=== PATIENT | female | born 2000 ===

== ENCOUNTER → 2022-06-19 | Outpatient (CLI) | payer OTHER ==
[~2022-06-19] MED LIST: RXPROM12.S PR
[2022-06-19 11:07] LABS: BASOPHILS ABSOLUTE AUTO 0.02 K/mm3 (0.00-0.23); BASOPHILS PERCENT AUTO 0 % (0-2); EOSINOPHILS PERCENT AUTO 0 % (0-6); Hematocrit 35.6 % (33.0-51.0); Hemoglobin 11.7 g/dL (11.5-16.0); IMMATURE GRAN ABSOLUTE AUTO 0.05 K/mm3 (0.00-0.10); IMMATURE GRAN PERCENT AUTO 0 % (0-1); LYMPHOCYTES ABSOLUTE AUTO 1.99 K/mm3 (0.84-5.20); LYMPHOCYTES PERCENT AUTO 14 % (21-46); MONOCYTES ABSOLUTE AUTO 1.22 K/mm3 (0.16-1.47); MONOCYTES PERCENT AUTO 9 % (4-13); Mean Corpuscular HGB 28.3 pg (26.0-34.0); Mean Corpuscular HGB Conc 32.9 g/dL (31.5-36.5); Mean Corpuscular Volume 86 fL (80-100); Mean Platelet Volume 9.6 fL (9.1-12.4); NEUTROPHILS ABSOLUTE AUTO 10.88 K/mm3 (1.96-9.15); NEUTROPHILS PERCENT AUTO 77 % (41-73); Platelet Count 261 K/mm3 (150-400); RDW Standard Deviation 40.7 fL (35.1-46.3); Red Blood Cell Count 4.13 M/mm3 (3.80-5.20); White Blood Cell Count 14.16 K/mm3 (4.00-11.30)
== END | disposition home or self-care (01) ==
LOC: LAB SHORT 11:04
PROVIDERS: Physician Assistant
DX: I95.9 Hypotension, unspecified (principal)
CPT/HCPCS: 85025

== ENCOUNTER → 2022-11-09 | Outpatient (CLI) | payer OTHER ==
[2022-11-09 13:31] LABS: BASOPHILS ABSOLUTE AUTO 0.03 K/mm3 (0.00-0.23); BASOPHILS PERCENT AUTO 0 % (0-2); EOSINOPHILS ABSOLUTE AUTO 0.01 K/mm3 (0.00-0.68); EOSINOPHILS PERCENT AUTO 0 % (0-6); Hematocrit 39.8 % (33.0-51.0); Hemoglobin 13.5 g/dL (11.5-16.0); IMMATURE GRAN ABSOLUTE AUTO 0.01 K/mm3 (0.00-0.10); IMMATURE GRAN PERCENT AUTO 0 % (0-1); LYMPHOCYTES ABSOLUTE AUTO 2.15 K/mm3 (0.84-5.20); LYMPHOCYTES PERCENT AUTO 31 % (21-46); MONOCYTES ABSOLUTE AUTO 0.23 K/mm3 (0.16-1.47); MONOCYTES PERCENT AUTO 3 % (4-13); Mean Corpuscular HGB 28.5 pg (26.0-34.0); Mean Corpuscular HGB Conc 33.9 g/dL (31.5-36.5); Mean Corpuscular Volume 84 fL (80-100); Mean Platelet Volume 9.5 fL (9.1-12.4); NEUTROPHILS ABSOLUTE AUTO 4.53 K/mm3 (1.96-9.15); NEUTROPHILS PERCENT AUTO 65 % (41-73); Platelet Count 320 K/mm3 (150-400); RDW Standard Deviation 39.9 fL (35.1-46.3); Red Blood Cell Count 4.73 M/mm3 (3.80-5.20); White Blood Cell Count 6.96 K/mm3 (4.00-11.30)
[2022-11-09 13:43] LABS: Albumin, Blood 4.4 g/dL (3.4-5.0); Albumin/Globulin Ratio 1.3 (0.8-1.8); Bilirubin, Total 0.6 mg/dL (0.1-1.0); Bun/Creatinine Ratio 14.5 (12.0-20.0); Calcium, Blood 8.9 mg/dL (8.5-10.1); Creatinine, Blood 0.76 mg/dL (0.40-1.00); Globulin, Blood 3.4 g/dL (2.2-4.0); Potassium, Blood 3.6 mmol/L (3.5-5.5); Total Protein, Blood 7.8 g/dL (6.4-8.2)
== END | disposition home or self-care (01) ==
LOC: LAB 13:27 → LAB SHORT 13:27
PROVIDERS: Family Medicine
DX: R11.2 Nausea with vomiting, unspecified (principal)
CPT/HCPCS: 80053; 85025

== ENCOUNTER 2022-12-30 13:42 | Day surgery (SDC) | payer OTHER ==
[~2022-12-30] VITALS: Ht 157.5 cm; Wt 45.9 kg
[2022-12-30] MEDS ORDERED: SERT100 (14:28)
[2022-12-30] MEDS ORDERED: BUPR75 (14:28)
[2022-12-30] MEDS ORDERED: ENSKYCE 28 TAB1 EACH (14:29)
[2022-12-30] MEDS ORDERED: CETI5 (14:29)
[2022-12-30 16:48] VITALS: BP 110/77
== END 2022-12-30 16:47 | disposition home or self-care (01) ==
LOC: ORSCSDS 13:42
PROVIDERS: Internal Medicine Gastroenterology
PROC: 0DB58ZX Excision of Esophagus, Via Natural or Artificial Opening Endoscopic, Diagnostic (ICD-10-PCS; principal; 2022-12-30 15:00)
PROC: 0DB68ZX Excision of Stomach, Via Natural or Artificial Opening Endoscopic, Diagnostic (ICD-10-PCS; principal; 2022-12-30 15:00)
PROC: 0DB98ZX Excision of Duodenum, Via Natural or Artificial Opening Endoscopic, Diagnostic (ICD-10-PCS; principal; 2022-12-30 15:00)
DX: R11.2 Nausea with vomiting, unspecified (principal); R10.9 Unspecified abdominal pain; R63.4 Abnormal weight loss; K20.90 Esophagitis, unspecified without bleeding; K29.70 Gastritis, unspecified, without bleeding; F17.290 Nicotine dependence, other tobacco product, uncomplicated; Z79.899 Other long term (current) drug therapy
CPT/HCPCS: 88305; 88312; 88342; J0461; J2001; J2250; J2405; J2704; J7120; Q9968

== ENCOUNTER → 2023-11-09 | Outpatient (CLI) | payer OTHER ==
[~2023-11-09] MED LIST changes: +BUPR75; +CETI5; +ENSKYCE 28 TAB1 EACH; +SERT100
[2023-11-12 08:29] LABS: HIV 1,2 COMBO ANTIGEN/ANTIBODY Negative (Negative)
[2023-11-12 09:31] LABS: HEPATITIS B SURFACE ANTIBODY 16.29 IU/L
[2023-11-12 10:01] LABS: HEPATITIS B SURFACE ANTIGEN Negative (Negative)
[2023-11-12 14:22] LABS: HCV QNT BY NAAT (IU/ML) Not Detected; HCV QNT BY NAAT (LOG IU/ML) Not Detected; HCV QNT BY NAAT INTERP Not Detected (Not Detected)
== END | disposition home or self-care (01) ==
LOC: LAB SHORT 18:04
PROVIDERS: Emergency Medicine
DX: Z20.9 Contact with and (suspected) exposure to unspecified communicable disease (principal)
CPT/HCPCS: 84460; 87340; 87389; 87522

== ENCOUNTER → 2024-02-10 | Outpatient (CLI) | payer OTHER ==
[2024-02-10 13:48] LABS: BASOPHILS ABSOLUTE AUTO 0.01 K/mm3 (0.00-0.23); BASOPHILS PERCENT AUTO 0 % (0-2); EOSINOPHILS ABSOLUTE AUTO 0.02 K/mm3 (0.00-0.68); EOSINOPHILS PERCENT AUTO 0 % (0-6); Hematocrit 43.9 % (33.0-51.0); Hemoglobin 14.6 g/dL (11.5-16.0); IMMATURE GRAN ABSOLUTE AUTO 0.01 K/mm3 (0.00-0.10); IMMATURE GRAN PERCENT AUTO 0 % (0-1); LYMPHOCYTES ABSOLUTE AUTO 1.57 K/mm3 (0.84-5.20); LYMPHOCYTES PERCENT AUTO 25 % (21-46); MONOCYTES ABSOLUTE AUTO 0.71 K/mm3 (0.16-1.47); MONOCYTES PERCENT AUTO 11 % (4-13); Mean Corpuscular HGB 28.3 pg (26.0-34.0); Mean Corpuscular HGB Conc 33.3 g/dL (31.5-36.5); Mean Corpuscular Volume 85 fL (80-100); Mean Platelet Volume 9.8 fL (9.1-12.4); NEUTROPHILS ABSOLUTE AUTO 4.03 K/mm3 (1.96-9.15); NEUTROPHILS PERCENT AUTO 63 % (41-73); Platelet Count 278 K/mm3 (150-400); RDW Coefficient Variation 13.1 % (11.7-14.2); RDW Standard Deviation 40.6 fL (35.1-46.3); Red Blood Cell Count 5.16 M/mm3 (3.80-5.20); White Blood Cell Count 6.35 K/mm3 (4.00-11.30)
[2024-02-10 14:00] LABS: Albumin, Blood 4.3 g/dL (3.4-5.0); Albumin/Globulin Ratio 1.1 (0.8-1.8); Bilirubin, Total 0.3 mg/dL (0.1-1.0); Bun/Creatinine Ratio 7.1 (12.0-20.0); Calcium, Blood 9.2 mg/dL (8.5-10.1); Creatinine, Blood 0.7 mg/dL (0.40-1.00); Potassium, Blood 3.4 mmol/L (3.5-5.5); Total Protein, Blood 8.3 g/dL (6.4-8.2)
== END | disposition home or self-care (01) ==
LOC: LAB SHORT 13:44
PROVIDERS: Physician Assistant
DX: R11.2 Nausea with vomiting, unspecified (principal); R19.7 Diarrhea, unspecified
CPT/HCPCS: 80053; 83690; 85025

== ENCOUNTER 2024-11-06 18:38 | Observation (INO) | payer OTHER ==
[~2024-11-06] VITALS: Ht 157.5 cm; Wt 45.7 kg
[2024-11-06 19:34] LABS: BASOPHILS ABSOLUTE AUTO 0.02 K/mm3 (0.00-0.23); BASOPHILS PERCENT AUTO 0 % (0-2); EOSINOPHILS ABSOLUTE AUTO 0.01 K/mm3 (0.00-0.68); EOSINOPHILS PERCENT AUTO 0 % (0-6); Hematocrit 39.9 % (33.0-51.0); Hemoglobin 13.3 g/dL (11.5-16.0); IMMATURE GRAN ABSOLUTE AUTO 0.05 K/mm3 (0.00-0.10); IMMATURE GRAN PERCENT AUTO 0 % (0-1); LYMPHOCYTES ABSOLUTE AUTO 1.13 K/mm3 (0.84-5.20); LYMPHOCYTES PERCENT AUTO 7 % (21-46); MONOCYTES ABSOLUTE AUTO 0.97 K/mm3 (0.16-1.47); MONOCYTES PERCENT AUTO 6 % (4-13); Mean Corpuscular HGB 28.4 pg (26.0-34.0); Mean Corpuscular HGB Conc 33.3 g/dL (31.5-36.5); Mean Corpuscular Volume 85 fL (80-100); Mean Platelet Volume 10.4 fL (9.1-12.4); NEUTROPHILS ABSOLUTE AUTO 13.35 K/mm3 (1.96-9.15); NEUTROPHILS PERCENT AUTO 86 % (41-73); Platelet Count 261 K/mm3 (150-400); RDW Coefficient Variation 13.6 % (11.7-14.2); RDW Standard Deviation 42.3 fL (35.1-46.3); Red Blood Cell Count 4.68 M/mm3 (3.80-5.20); White Blood Cell Count 15.53 K/mm3 (4.00-11.30)
[2024-11-06] MEDS ORDERED: Ondansetron HCl 2 MG / ML 2ML Vial IV ONE ×2 (19:45→23:50)
[2024-11-06 20:02] LABS: Source, Urine Clean Catch
[2024-11-06 20:08] LABS: Albumin, Blood 4.1 g/dL (3.4-5.0); Albumin/Globulin Ratio 1.3 (0.8-1.8); Bilirubin, Total 1.1 mg/dL (0.1-1.0); Bun/Creatinine Ratio 13.6 (12.0-20.0); Calcium, Blood 8.8 mg/dL (8.5-10.1); Creatinine, Blood 0.52 mg/dL (0.40-1.00); Globulin, Blood 3.1 g/dL (2.2-4.0); Potassium, Blood 3.7 mmol/L (3.5-5.5); Total Protein, Blood 7.2 g/dL (6.4-8.2)
[2024-11-06] MEDS ORDERED: PARO30 PO (20:12)
[2024-11-06] MEDS ORDERED: BUSP10 PO (20:13)
[2024-11-06 20:16] LABS: Influenza A, PCR NEGATIVE (NEGATIVE); Influenza B, PCR NEGATIVE (NEGATIVE); Resp Syncytial Virus, PCR NEGATIVE (NEGATIVE); SARS-Cov-2 (COVID-19) PCR, MMC NEGATIVE (NEGATIVE)
[2024-11-06 20:24] LABS: Bilirubin, Urine Neg (Neg); Blood, Urine Neg (Neg); Color, Urine Amber (P-Yellow); Glucose Qualitative, Urine Neg (Neg); Ketones, Urine 3+ (Neg); Leukocyte Esterase, Urine 1+ (Neg); Nitrite, Urine Neg (Neg); Protein, Urine 2+ (Neg); Urobilinogen, Urine 1+ (Normal)
[2024-11-06 20:38] LABS: Appearance, Urine Hazy (Clear)
[2024-11-06 20:39] LABS: Bacteria Many /hpf; Mucus Mod (0-Heavy); Red Blood Cells, Urine 0-2 /hpf (0-2); Squamous Epithelial Cells Many /hpf (Few); Transitional Epithelial Cells Rare /hpf (0-Rare)
[2024-11-06] MEDS ORDERED: NS 1,000 ML IV SCH ×2 (20:45→21:25)
[2024-11-06] MEDS ORDERED: CefTRIAXone Sodium 1,000 MG in NS 100 ML IV ONE (23:05)
[2024-11-06] MEDS ORDERED: Lactated Ringer's 1,000 ML IV SCH (23:05)
[2024-11-06] MEDS ORDERED: Ketorolac Tromethamine 15mg Vial IV ONE (23:50)
[2024-11-07] MEDS ORDERED: Ampicillin Sod/Sulbactam Sod 3 GM in NS 100 ML IV ONE (02:20)
[2024-11-07] MEDS ORDERED: Lactated Ringer's 1,000 ML IV SCH ×2 (02:20→04:10)
[2024-11-07] MEDS ORDERED: HYDROmorphone HCl/Pf 1MG SYR IV ONE (04:45)
--- NOTE | 2024-11-07 05:32 | NUR ---
ATTEMPTED REPORT FROM ED. ED RN TO CALL SURGICAL FLOOR WHEN AVAILABLE. CHARGE AWARE. ROOM READY FOR PT.
--- NOTE | 2024-11-07 05:53 | NUR ---
REPORT RECEIVED FROM PATITO SAUCEDA IN ED AT THIS TIME. PLAN FOR ED TO TRANSFER PT TO SURGICAL FLOOR ROOM 226.
--- NOTE | 2024-11-07 06:00 | NUR ---
UPDATE PT ARRIVED TO UNIT AT 0555 TODAY R/T TO JEJUNAL INTUSSUSCEPTION DX. ABLE TO AMBULATE IND FROM WC TO BED WITHOUT DIFFICULTY. IS A/OX4 AND IND AT BASELINE. GRANDPARENTS ATTENTIVE AT BEDSIDE. DENIES PAIN, DIZZINESS, CP/PRESSURE, SOB, N/T OR N/V AT TIME OF ARRIVAL. HYPOTENSIVE IN ED, 2L IVF INFUSED. IV TO RIGHT AC SL. REPORTS NVD AND ABD PAIN X 3 DAYS PRIOR TO ADMISSION, STATES RELIEF FROM [facility] AND IV DILAUDID ADMINISTERED IN ED. ORIENTATION TO ROOM PROVIDED. PT AND FAMILY VERBALIZED UNDERSTANDING. PT SMILING AND VISITING WITH FAMILY WHILE SITTING UP IN BED. HAS CALL LIGHT IN REACH AND ABLE TO MAKE NEEDS KNOWN. PLAN FOR GENERAL SURGERY CONSULT TODAY.
[2024-11-07 06:07] VITALS: BP 108/98
[2024-11-07 06:09] VITALS: BP 116/74
--- NOTE | 2024-11-07 06:45 | NUR ---
UPDATE GRANDMOTHER ON PHONE WITH PT'S MOTHER, WHO LIVES IN [place]. PT'S MOTHER ADMIT SHE LEAVE AND SEEK CARE IN [place]. GRANDMOTHER REPORTS BEING UNHAPPY WITH CARE AND COMMUNICATION IN ED. SHE ALSO C/O PT NOT BEING EVALUATED BY SURGEON YET. DEMANDS PATIENT GET CHANGED AND LEAVE PER MOTHER REQUEST. PT THEN CHANGES CLOTHES AND WILLING TO LEAVE. INSPECTOR FILTERS AND DR MAJO DALY. AFTER DISCUSSING AMA FORM, INCLUDING RISKS AND BENEFITS WITH THIS RN AND CHARGE, PT AND FAMILY NOW PLAN TO WAIT FOR EVALUATION WITH ONCOMING SURGEON. REPORT GIVEN TO ONCOMING RN.
[2024-11-07 07:36] VITALS: BP 110/71
[2024-11-07] MEDS ORDERED: Ondansetron HCl 2 MG / ML 2ML Vial IV PRN (08:40)
[2024-11-07] MEDS ORDERED: HYDROmorphone HCl/Pf 1MG SYR IV PRN (08:40)
[2024-11-07 14:38] VITALS: BP 96/68
[2024-11-07] MEDS ORDERED: Metoclopramide HCl 10 MG Tab PO PRN (15:35)
[2024-11-07] MEDS ORDERED: ONDA4 PO (15:44)
--- NOTE | 2024-11-07 16:19 | NUR ---
DISCHARGE PT AND FAMILY EDUCATED ON AND RECEIVED PRINTED DISCHARGE INSTRUCTIONS AND VERBALIZED AN UNDERSTANDING. RX FAXED TO [facility]. IV DC'D. PT LEFT WITH ALL PERSONAL BELONGINGS AND FAMILY TO DRIVE PT HOME.
== END 2024-11-07 16:41 | disposition home or self-care (01) ==
LOC: ER 18:38 → ERHOLD 18:39 → SURS 11-07 05:59
PROVIDERS: Student in an Organized Health Care Education/Training Program; ADMIT Surgery
DX: K56.1 Intussusception (principal); F31.9 Bipolar disorder, unspecified; Z87.891 Personal history of nicotine dependence; Z79.899 Other long term (current) drug therapy
CPT/HCPCS: 0241U; 36415; 71046; 74177; 80053; 81001; 83605; 84703; 85025; 87040; 87086; 93005; 93010; 96365-59; 96367; 96375; 96376; 99285-25; G0378; J0295; J0696; J1171; J1885; J2405; J7030; J7120; Q9967

== ENCOUNTER → 2024-11-13 | Outpatient (CLI) | payer OTHER ==
[~2024-11-13] MED LIST changes: +BUSP10 PO; +ONDA4 PO; +PARO30 PO
[2024-11-13 13:17] LABS: Bacterial Vaginosis PCR Negative (NEGATIVE); Candida Group, PCR NOT DETECTED (NOT DETECT); Candida glabrata-krusei, PCR NOT DETECTED (NOT DETECT)
== END | disposition home or self-care (01) ==
LOC: LAB 10:38 → LAB SHORT 10:38
PROVIDERS: Physician Assistant
DX: Z11.3 Encounter for screening for infections with a predominantly sexual mode of transmission (principal)
CPT/HCPCS: 81515

== ENCOUNTER 2025-03-11 12:45 | Emergency (ER) | payer OTHER ==
[~2025-03-11] VITALS: Ht 157.5 cm; Wt 45.4 kg
[2025-03-11 13:27] VITALS: BP 121/85
[2025-03-11 14:24] LABS: BASOPHILS ABSOLUTE AUTO 0.04 K/mm3 (0.00-0.23); BASOPHILS PERCENT AUTO 1 % (0-2); EOSINOPHILS ABSOLUTE AUTO 0.06 K/mm3 (0.00-0.68); EOSINOPHILS PERCENT AUTO 1 % (0-6); Hematocrit 41.2 % (33.0-51.0); Hemoglobin 13.2 g/dL (11.5-16.0); IMMATURE GRAN ABSOLUTE AUTO 0.01 K/mm3 (0.00-0.10); IMMATURE GRAN PERCENT AUTO 0 % (0-1); LYMPHOCYTES ABSOLUTE AUTO 2.26 K/mm3 (0.84-5.20); LYMPHOCYTES PERCENT AUTO 35 % (21-46); MONOCYTES ABSOLUTE AUTO 0.44 K/mm3 (0.16-1.47); MONOCYTES PERCENT AUTO 7 % (4-13); Mean Corpuscular HGB Conc 32.0 g/dL (31.5-36.5); Mean Corpuscular Volume 87 fL (80-100); NEUTROPHILS ABSOLUTE AUTO 3.66 K/mm3 (1.96-9.15); NEUTROPHILS PERCENT AUTO 57 % (41-73); NRBC ABSOLUTE 0.00 K/mm3 (0.00-0.02); NRBC Auto 0.0 /100 WBC (0.0-0.2); Platelet Count 349 K/mm3 (150-400); RDW Coefficient Variation 13.0 % (11.7-14.2); RDW Standard Deviation 41.1 fL (35.1-46.3)
[2025-03-11] MEDS ORDERED: NS 1,000 ML IV SCH (14:55)
[2025-03-11 14:57] LABS: Alanine Aminotransfer (ALT/SGP 14.0 U/L (12-78); Albumin, Blood 3.8 g/dL (3.4-5.0); Albumin/Globulin Ratio 1.1 (0.8-1.8); Anion Gap 6.0 mmol/L (3-11); Aspartate Aminotrans (AST/SGOT 10.0 U/L (12-37); Bilirubin, Total 0.6 mg/dL (0.1-1.0); Blood Urea Nitrogen 6.0 mg/dL (8-24); CO2, Blood 27.0 mmol/L (21-32); Calcium, Blood 8.7 mg/dL (8.5-10.1); Chloride, Blood 108.0 mmol/L (98-108); Creatinine, Blood 0.55 mg/dL (0.40-1.00); Globulin, Blood 3.5 g/dL (2.2-4.0); Glucose, Blood 93.0 mg/dL (70-99); Potassium, Blood 3.8 mmol/L (3.5-5.5); Sodium, Blood 137.0 mmol/L (136-145); Total Protein, Blood 7.3 g/dL (6.4-8.2)
[2025-03-11 16:54] LABS: Influenza A, PCR NEGATIVE (NEGATIVE); Influenza B, PCR NEGATIVE (NEGATIVE); Resp Syncytial Virus, PCR NEGATIVE (NEGATIVE); SARS-Cov-2 (COVID-19) PCR, MMC NEGATIVE (NEGATIVE)
[2025-03-11] MEDS ORDERED: Lidocaine 2% Viscous Soln 15 ML UDC PO ONE (17:00)
[2025-03-11] MEDS ORDERED: Ketorolac Tromethamine 15mg Vial IV ONE (17:00)
== END 2025-03-11 17:53 | disposition home or self-care (01) ==
LOC: ER 12:45
PROVIDERS: Physician Assistant
DX: R10.12 Left upper quadrant pain (principal); Z79.899 Other long term (current) drug therapy; Z59.89 Other problems related to housing and economic circumstances; Z87.19 Personal history of other diseases of the digestive system
CPT/HCPCS: 76705; 80053; 85025; 87637; 93005; 93010; 96374; 96375; 99284-25; A9270; J1885; J7030

== ENCOUNTER 2025-04-10 12:36 | Day surgery (SDC) | payer OTHER ==
[~2025-04-10 12:36] MED LIST changes: +PANT20 PO
[2025-04-10 14:57] VITALS: BP 93/61
== END 2025-04-10 14:52 | disposition home or self-care (01) ==
LOC: ORSCSDS 12:36
PROVIDERS: Internal Medicine Gastroenterology
PROC: 0DBE8ZX Excision of Large Intestine, Via Natural or Artificial Opening Endoscopic, Diagnostic (ICD-10-PCS; principal; 2025-04-10 14:00)
DX: R19.7 Diarrhea, unspecified (principal); R10.84 Generalized abdominal pain; R11.2 Nausea with vomiting, unspecified; Z87.19 Personal history of other diseases of the digestive system; Z79.899 Other long term (current) drug therapy; F41.9 Anxiety disorder, unspecified; F32.A Depression, unspecified; F17.290 Nicotine dependence, other tobacco product, uncomplicated
CPT/HCPCS: 88305; J2704; J7120